=== PATIENT | male | born 1965 ===

== ENCOUNTER 2018-04-03 21:39 | Inpatient (IN) | payer SELFPAY ==
--- NOTE | 2018-04-03 21:57 | C.PDOC ---
History Of Present Illness 52 y/o male, BIBA as a transfer from [facility], presents to the ED for admission for depression. The patient offers no medical complaints. Time Seen by Provider: 04/03/18 21:44 Chief Complaint (Nursing): Psychiatric Evaluation History Per: Patient History/Exam Limitations: no limitations Onset/Duration Of Symptoms: Hrs Current Symptoms Are (Timing): Still Present Recent travel outside of the [facility]: No Additional History Per: EMS Past Medical History Reviewed: Historical Data, Nursing Documentation, Vital Signs Vital Signs: Last Vital Signs Temp 97.8 F 04/03/18 21:40 Pulse 73 04/03/18 21:40 Resp 16 04/03/18 21:40 BP 146/91 H 04/03/18 21:40 Pulse Ox 97 04/03/18 21:59 - Medical History PMH: No Chronic Diseases Other Surgeries: stomach surgery Family History: States: Unknown Family Hx - Social History Hx Alcohol Use: No Hx Substance Use: No (pt denies) Review Of Systems Except As Marked, All Systems Reviewed And Found Negative. Constitutional: Negative for: Fever, Chills Psych: Positive for: Depression Physical Exam - Physical Exam Appears: Well, Non-toxic, No Acute Distress Skin: Normal Color, Warm, Dry Head: Atraumatic, Normacephalic Eye(s): bilateral: PERRL, EOMI Ear(s): Bilateral: Normal Oral Mucosa: Moist Neck: Supple Chest: Symmetrical Cardiovascular: Rhythm Regular, No Murmur Respiratory: Normal Breath Sounds, No Rales, No Rhonchi, No Wheezing Gastrointestinal/Abdominal: Soft, No Tenderness, No Distention Extremity: Normal ROM Neurological/Psych: Oriented x3, Normal Speech Gait: Steady ED Course And Treatment O2 Sat by Pulse Oximetry: 97 (RA) Pulse Ox Interpretation: Normal Medical Decision Making Medical Decision Makin- Admission to Dr. 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 - Scribe Statement The provider has reviewed the documentation as recorded by the Scribe (Stefani Aldana) Provider Attestation: All medical record entries made by the Scribe were at my direction and personally dictated by me. I have reviewed the chart and agree that the record accurately reflects my personal performance of the history, physical exam, medical decision making, and the department course for this patient. I have also personally directed, reviewed, and agree with the discharge instructions and disposition.
--- NOTE | 2018-04-03 22:58 | PCM.BM ---
Treatment Plan Problems - Problems identified on initial assessmt Depression Date Initiated: 04/03/18 Time Initiated: 22:30 Assessment reference: NA Status: Active Treatment assets and liabiliti Patient Liabilities: substance abuse (Barbiturates) - Milieu Protocol Maintain good personal hygiene: daily Encourage regular showers, daily Remind patient to perform daily oral care, every shift Assist patient to perform ADL's Conduct patient checks and document Observation sheet: Q15 minutes Maintain personal safety: every shift Educate patient to report safety concerns to staff, every shift Monitor environment for contraband/sharps Medication safety: Monitor for expected outcome, potential side effects: every shift, Assess barriers to learning: every shift, Assess readiness for medication education: every shift
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
[2018-04-04] MEDS: Multiple Vitamins Tab PO SCH (18:07)
[2018-04-05 06:56] VITALS: RESP 20
[2018-04-05] MEDS: Multiple Vitamins Tab PO SCH (10:25)
--- NOTE | 2018-04-06 00:08 | PCM.PYCHPN ---
Psychiatric Progress Note - Psychiatric Progress Note Patient seen today, length of contact: 18 min Patient Chief Complaint: "I'm fine" Problems Identified/Issues Discussed: He is seen, chart reviewed, case discussed Georgian speaking RN translated He is refusing meds, not attending groups, on the phone a lot He claims his would take him back but if not he would stay with a friend He regrets his attempt and denies any SI, HI, AVH/del He demands d/c but agreed to stay (has a 48 hr note) until we contact his , who is not returning calls so far. Support and psychoed given He is not agitated or threatening, future oriented Medication Change: Yes (prozac) Medical Record Reviewed: Yes Mental Status Examination - Cognitive Function Orientation: Person, Place, Situation, Time Memory: Intact Attention: WNL Concentration: Poor Association: WNL Fund of Knowledge: WNL - Mood Mood: Depressed - Affect Affect: Constricted - Speech Speech: Appropriate - Formal Thought Process Formal Thought Process: No Impairment - Suicidal Ideation Suicidal Ideation: No - Homicidal Ideation Homicidal Ideation: No Goal/Treatment Plan - Goal/Treatment Plan Need for Continued Stay: Discharge may exacerbated symptoms, Severe functional impairment Progress Toward Problem(s) and Goals/Treatment Plan: Continue meds and therapy Support and psychoed Contact After care by [facility]
[2018-04-06 06:32] VITALS: BP 107/72; PULSE 80; TEMP 97.5; O2SAT 97
[2018-04-06] MEDS: Multiple Vitamins Tab PO SCH (09:04)
--- NOTE | 2018-04-06 09:09 | PCM.PYCHDC ---
Mental Status Examination - Mental Status Examination Orientation: Person, Place, Situation, Time Memory: Intact Mood: Depressed (less), Anxious Affect: Constricted Speech: Appropriate Attention: WNL Concentration: WNL Association: WNL Fund of Knowledge: WNL Formal Thought Process: No Impairment Suicidal Ideation: No Current Homicidal Ideation?: No Discharge Summary - Discharge Note Reason for Hospitalization: Depression, SI, OD Consultations:: List each consultation separately and include: 1. Reason for request. 2. Findings. 3. Follow-up Summary of Hospital Course include:: 1. Description of specific treatment plan utilized for patients during their course of treatmen. 2. Summarize the time- course for resolution of acute symptoms and/or regressed behaviors. 3. Describe issues identified and worked on during hospitalization. 4. Describe medication utilized. 5. Describe medical problems identified and treated. 6. Reassessment of suicide risk Summary of Hospital Course: Seen with Montenegrin speaking RN We called her from different phones more than 8 times but she did not medicinal plant picker The pt was admitted and started on treatment with psychotherapy, support, psychoeducation and medications. TX used All the risks and benefits of medications are discussed and the patient understood and agreed. The pt improved with the treatments provided. However he asked to leave AMA b/c he said he was better and wanted to move on with his life, ie return to if he cannot be with . He said he would stay with a friend, who he was in touch. He was future-oriented and much calmer upon d/c. He voiced no SI or HI since admission After care discussed with the patient. He will return to [facility] outpt program He only agreed to take Remeron at night. - Final Diagnosis (DSM 5) Condition upon Discharge: IMPROVED DSM 5: Major depressive d/o - recurrent, severe, w/o psychosis Alcohol use d/o - moderate Personality d/o - severe Disposition: AGAINST MEDICAL ADVICE Follow-up Treatment Plan: Continue below medications after discharge. Follow after care plan as discussed. Use relapse prevention skills Return to ER or call 911 if suicidal, homicidal or symptoms relapse. Stay away from stress, alcohol and drugs. See primary doctor regularly and get labs. Stay away from if she refuses contact or gotten an OOP - he agreed Prescriptions/Medication Reconciliation: Mirtazapine [Remeron] 15 mg PO HS #30 tab
[2018-04-06] MEDS ORDERED: Pneumococcal 23-Valent Vaccine IM ONE (10:00)
== END 2018-04-06 10:22 | disposition left against medical advice (07) | DRG 885 ==
LOC: C.ER 21:39 → C.5E 21:47
PROVIDERS: ADMIT Psychiatry & Neurology Psychiatry; ATTEND Psychiatry & Neurology Psychiatry
PROC: GZ58ZZZ Individual Psychotherapy, Cognitive-Behavioral (ICD-10-PCS; principal; 2018-04-03)
PROC: GZ56ZZZ Individual Psychotherapy, Supportive (ICD-10-PCS; 2018-04-03)
DX: F33.2 Major depressive disorder, recurrent severe without psychotic features (principal); Z91.5 Personal history of self-harm; F10.10 Alcohol abuse, uncomplicated